=== PATIENT | male | born 1985 | race American Indian/Alaskan Native ===

== ENCOUNTER 2017-01-18 12:11 | Emergency (ER) | payer OTHER ==
--- NOTE | 2017-01-18 14:41 | Emergency Department Report ---
HPI - General Chief Complaint: Extremity Injury, Upper Time Seen by Provider: 01/18/17 14:25 - HPI HPI: She is a 31-year-old male presents to ED complaining of right axilla tenderness and draining for the past 3 days. Patient states he is at this incident a couple of times and has been to the ER for it. Patient states pain and swelling began 3 days ago. ED Past Medical Hx - Past Medical History Previous Medical History?: No - Surgical History Past Surgical History?: Yes Additional Surgical History: Left forehead plastic surgery - Social History Smoking Status: Current Every Day Smoker Substance Use Type: None - Medications Home Medications: Home Medications Medication Instructions Recorded Confirmed Last Taken Type Cephalexin [Keflex] 500 mg PO Q12HR #14 cap 08/18/16 Unknown Rx Acetaminophen/Codeine [Tylenol 1 tab PO Q6H PRN #14 tab 01/18/17 Unknown Rx /Codeine # 3 tab] Ibuprofen [Motrin 600 MG tab] 600 mg PO Q8H PRN #25 tablet 01/18/17 Unknown Rx Sulfamethoxazole/Trimethoprim 1 each PO BID #14 tablet 01/18/17 Unknown Rx [Bactrim DS TAB] ED Review of Systems ROS: Stated complaint: RT ARM PAIN Other details as noted in HPI Constitutional: denies: chills, fever Eyes: denies: eye pain, eye discharge, vision change ENT: denies: ear pain, throat pain, dental pain, hearing loss, congestion Respiratory: denies: cough, shortness of breath, wheezing Cardiovascular: denies: chest pain, palpitations Endocrine: no symptoms reported Gastrointestinal: denies: abdominal pain, nausea, diarrhea Genitourinary: denies: urgency, dysuria Musculoskeletal: denies: back pain, joint swelling, arthralgia Skin: denies: rash, lesions Neurological: denies: headache, weakness, paresthesias Psychiatric: denies: anxiety, depression Hematological/Lymphatic: denies: easy bleeding, easy bruising Physical Exam - Physical Exam Vital Signs: Vital Signs 01/18/17 13:02 Temperature 98.5 F Pulse Rate 77 Respiratory 18 Rate Blood Pressure 136/94 O2 Sat by Pulse 97 Oximetry Physical Exam: GENERAL: Alert and oriented x3, no apparent distress, Normal Gait, atraumatic. HEAD: Head is normocephalic and a-traumatic. EYES: Extra ocular muscles are intact. Pupils are equal, round, and reactive to light and accommodation. NECK: Supple. Non edematous, No carotid bruits. No lymphadenopathy or thyromegaly. No C-spine tenderness LUNGS: Symetrical with respiration, No wheezing, no rales or crackles, CTAB. HEART: S1, S2 present, regular rate and rhythm without murmur, no rubs, no gallops. EXTREMITIES/MUSCULOSKELETAL: No cyanosis, clubbing, rash, lesions or edema. Full ROM bilaterally. UE/LE Pulses 2+ bilaterally. Right axilla tender to palpation, rope like raised tender lesions, mildly draining, not fluctuant NEUROLOGIC: The patient is cooperative with no focal neurologic deficits. Cranial nerves II through XII are grossly intact. Normal speech.. SKIN: Warm and dry, No lesions, No ulceration or induration present. ED Course Vital Signs 01/18/17 13:02 Temperature 98.5 F Pulse Rate 77 Respiratory 18 Rate Blood Pressure 136/94 O2 Sat by Pulse 97 Oximetry ED Medical Decision Making - Medical Decision Making 31-year-old male presents with hydradenitis of the right axilla. ED course: Patient received [place] and a dose of Bactrim in ED. Discussed the patient is very important for him to follow up with the primary care or plastic surgeon if adenitis is recurrent. Discussed the patient that it is a recurrence of disease and needs to be followed up by and managed by a primary care or may need a surgeon. Signs are stable patient is in no acute distress Patient is alert and oriented 3 understands instructions given Critical care attestation.: If time is entered above; I have spent that time in minutes in the direct care of this critically ill patient, excluding procedure time. ED Disposition Clinical Impression: Hidradenitis suppurativa of right axilla Disposition: DISCHARGED TO HOME OR SELFCARE Is pt being admited?: No Does the pt Need Aspirin: No Condition: Stable Instructions: Adenitis (ED) Additional Instructions: Apply warm compresses to your armpit. To Medications prescribed Is very important that you follow up as referred. Prescriptions: Acetaminophen/Codeine [Tylenol /Codeine # 3 tab] 1 tab PO Q6H PRN #14 tab PRN Reason: Pain Ibuprofen [Motrin 600 MG tab] 600 mg PO Q8H PRN #25 tablet PRN Reason: Pain Sulfamethoxazole/Trimethoprim [Bactrim DS TAB] 1 each PO BID #14 tablet Referrals: PRIMARY CARE, [Primary Care Provider] - 3-5 Days [facility] [Outside] - 3-5 Days [facility] [Outside] - 3-5 Days [facility] [Outside] - 3-5 Days [facility] [Outside] - 3-5 Days MODE CHIRINOS MD [Staff Physician] - 3-5 Days Forms: Accompanied Note, Work/School Release Form(ED) Time of Disposition: 15:21
[2017-01-18] MEDS ORDERED: BACTRIM DS PO ONE (14:46)
[2017-01-18] MEDS ORDERED: NORCO 5/325 PO ONE (14:46)
[2017-01-18 15:10] VITALS: BP 128/75
== END 2017-01-18 15:32 | disposition home or self-care (01) ==
LOC: ED 12:11
DX: L73.2 Hidradenitis suppurativa (principal); F17.200 Nicotine dependence, unspecified, uncomplicated
CPT/HCPCS: 99282

== ENCOUNTER 2017-04-02 11:19 | Emergency (ER) | payer OTHER ==
[2017-04-02] MEDS ORDERED: SUBLIMAZE ONE (12:30)
[2017-04-02] MEDS ORDERED: SUBLIMAZE IV ONE (12:36)
--- NOTE | 2017-04-02 12:50 | Emergency Department Report ---
ED General Adult HPI - General Chief complaint: Extremity Injury, Upper Stated complaint: LEFT SHOULDER DISLOCATION Time Seen by Provider: 04/02/17 12:45 Source: patient Mode of arrival: Ambulatory Limitations: No Limitations - History of Present Illness Initial comments: Patient states that he fell down the stairs last night and injured his left shoulder only. He did notice significant swelling. However he thought that it was just sprained. He presented today for evaluation with persistent pain and difficulty in moving his shoulders. -: Sudden Location: left, upper extremity Radiation: non-radiation Quality: aching Consistency: constant Improves with: none Worsens with: none Associated Symptoms: denies other symptoms Treatments Prior to Arrival: none - Related Data Previous Rx's Medication Instructions Recorded Last Taken Type Cephalexin [Keflex] 500 mg PO Q12HR #14 cap 08/18/16 Unknown Rx Acetaminophen/Codeine [Tylenol 1 tab PO Q6H PRN #14 tab 01/18/17 Unknown Rx /Codeine # 3 tab] Ibuprofen [Motrin 600 MG tab] 600 mg PO Q8H PRN #25 tablet 01/18/17 Unknown Rx Sulfamethoxazole/Trimethoprim 1 each PO BID #14 tablet 01/18/17 Unknown Rx [Bactrim DS TAB] HYDROcodone/APAP 7.5-325 [Addison 1 each PO Q6HR PRN #20 tablet 04/02/17 Unknown Rx 7.5/325] Allergies Allergy/AdvReac Type Severity Reaction Status Date / Time No Known Allergies Allergy Unverified 08/18/16 13:01 ED Review of Systems ROS: Stated complaint: LEFT SHOULDER DISLOCATION Other details as noted in HPI Constitutional: denies: chills, fever Eyes: denies: eye pain, eye discharge, vision change ENT: denies: ear pain, throat pain Respiratory: denies: cough, shortness of breath, wheezing Cardiovascular: denies: chest pain, palpitations Endocrine: no symptoms reported Gastrointestinal: denies: abdominal pain, nausea, diarrhea Genitourinary: denies: urgency, dysuria Musculoskeletal: as per HPI. denies: back pain, joint swelling, arthralgia Skin: denies: rash, lesions Neurological: denies: headache, weakness, paresthesias Psychiatric: denies: anxiety, depression Hematological/Lymphatic: denies: easy bleeding, easy bruising ED Past Medical Hx - Past Medical History Previous Medical History?: No - Surgical History Additional Surgical History: Left forehead plastic surgery - Social History Smoking Status: Current Every Day Smoker Substance Use Type: Alcohol - Medications Home Medications: Home Medications Medication Instructions Recorded Confirmed Last Taken Type Cephalexin [Keflex] 500 mg PO Q12HR #14 cap 08/18/16 Unknown Rx Acetaminophen/Codeine [Tylenol 1 tab PO Q6H PRN #14 tab 01/18/17 Unknown Rx /Codeine # 3 tab] Ibuprofen [Motrin 600 MG tab] 600 mg PO Q8H PRN #25 tablet 01/18/17 Unknown Rx Sulfamethoxazole/Trimethoprim 1 each PO BID #14 tablet 01/18/17 Unknown Rx [Bactrim DS TAB] HYDROcodone/APAP 7.5-325 [Addison 1 each PO Q6HR PRN #20 tablet 04/02/17 Unknown Rx 7.5/325] ED Physical Exam - General Limitations: No Limitations General appearance: alert, in no apparent distress - Head Head exam: Present: atraumatic, normocephalic - Eye Eye exam: Present: normal appearance, PERRL, EOMI. Absent: scleral icterus - ENT ENT exam: Present: mucous membranes moist - Neck Neck exam: Present: normal inspection. Absent: tenderness, meningismus - Respiratory Respiratory exam: Present: normal lung sounds bilaterally. Absent: respiratory distress - Cardiovascular Cardiovascular Exam: Present: regular rate, normal rhythm. Absent: systolic murmur, diastolic murmur, rubs, gallop - GI/Abdominal GI/Abdominal exam: Present: soft, normal bowel sounds. Absent: distended, tenderness, guarding, rebound, rigid - Rectal Rectal exam: Present: deferred - Extremities Exam Extremities exam: Present: other (swelling and likely deformity of the left shoulder. The shoulder does appear to be within the glenoid fossa however.) - Back Exam Back exam: Present: normal inspection. Absent: CVA tenderness (L), muscle spasm , paraspinal tenderness, vertebral tenderness - Neurological Exam Neurological exam: Present: alert, oriented X3, CN II-XII intact. Absent: motor sensory deficit - Psychiatric Psychiatric exam: Present: normal affect, normal mood - Skin Skin exam: Present: warm, dry, intact, normal color. Absent: rash ED Course Vital Signs 04/02/17 11:46 Temperature 99 F Pulse Rate 105 H Blood Pressure 150/102 O2 Sat by Pulse 99 Oximetry - Reevaluation(s) Reevaluation #1: The patient was given IV analgesia with fentanyl. He'll be placed in a sling. His blood pressure will be reassessed. He will be prescribed medication as appropriate. He will be referred to orthopedics and primary care. 04/02/17 12:51 Reevaluation #2: Blood pressure improved. 04/02/17 12:57 ED Medical Decision Making - Radiology Data interpreted by me: Avulsion fracture of the head of the humerus without dislocation Critical care attestation.: If time is entered above; I have spent that time in minutes in the direct care of this critically ill patient, excluding procedure time. ED Disposition Clinical Impression: Fracture of proximal humerus Qualifiers: Encounter type: initial encounter Fracture type: open Fracture morphology: unspecified fracture morphology Laterality: left Qualified Code(s): S42.202B - Unspecified fracture of upper end of left humerus, initial encounter for open fracture Disposition: DC-01 TO HOME OR SELFCARE Is pt being admited?: No Does the pt Need Aspirin: No Condition: Stable Instructions: Arm Fracture in Adults (ED) Additional Instructions: Keep shoulder in sling. Rx for pain. See orthopedic doctor for follow-up. Prescriptions: HYDROcodone/APAP 7.5-325 [Addison 7.5/325] 1 each PO Q6HR PRN #20 tablet PRN Reason: Pain Referrals: KACI PRYOR MD [Staff Physician] - 3-5 Days Time of Disposition: 12:55
--- NOTE | 2017-04-02 12:51 | XRay Report ---
Left shoulder 3 views: History: Injury, left shoulder pain. Findings: The a.c. joint appears normal. There is a fracture noted of greater tuberosity of left humerus. Avulsion of the fracture fragment is noted in the region. The glenohumeral joint normal. Impression: Fracture greater tuberosity left humerus. If clinically indicated CT scan may be utilized.
[2017-04-02 13:00] VITALS: BP 132/91
[2017-04-02] MEDS ORDERED: PERCOCET 5/325 PO ONE (13:16)
== END 2017-04-02 13:33 | disposition home or self-care (01) ==
LOC: ED 11:19
DX: S42.252A Displaced fracture of greater tuberosity of left humerus, initial encounter for closed fracture (principal); F17.210 Nicotine dependence, cigarettes, uncomplicated; W10.9XXA Fall (on) (from) unspecified stairs and steps, initial encounter; Y93.89 Activity, other specified; Y92.89 Other specified places as the place of occurrence of the external cause; Y99.8 Other external cause status
CPT/HCPCS: 73030; 96374; 99284; J3010

== ENCOUNTER 2017-07-07 11:40 | Emergency (ER) | payer SELFPAY ==
[2017-07-07 11:49] VITALS: BP 143/83
[2017-07-07] MEDS ORDERED: BSS 1 DROPS, TETRACAINE 0.5% 1 DROPS, FUL-GLO 1 MG OU ONE (12:46)
--- NOTE | 2017-07-07 12:47 | Emergency Department Report ---
Eye Injury/Foreign Body - HPI Eye Location: Left Severity: Moderate Tetanus Status: Up to Date Eye Symptoms: Eye Pain: Yes, Blurred Vision: Yes, Eye Redness: Yes, Grinding/ Hammering Metal: No, Used Eye Protection: No, Contact Lens Use: No, Recalls Injury: No, Photophobia: Yes Other History: Patient is a 31-year-old male with no prior medical condition who presents with left eye redness and pain 2 weeks. Patient states he did not have any injury or trauma objects in the eye. Patient is have not anything in the eye. Patient states it is not recontacted use glasses. ED Review of Systems ROS: Stated complaint: LEFT EYE RED , HEADACHE Other details as noted in HPI Constitutional: denies: chills, fever Eyes: denies: eye pain, eye discharge, vision change ENT: denies: ear pain, throat pain Respiratory: denies: cough, shortness of breath, wheezing Cardiovascular: denies: chest pain, palpitations Endocrine: no symptoms reported Gastrointestinal: denies: abdominal pain, nausea, diarrhea Genitourinary: denies: urgency, dysuria Musculoskeletal: denies: back pain, joint swelling, arthralgia Skin: denies: rash, lesions Neurological: denies: headache, weakness, paresthesias Psychiatric: denies: anxiety, depression Hematological/Lymphatic: denies: easy bleeding, easy bruising ED Past Medical Hx - Past Medical History Previous Medical History?: No - Surgical History Additional Surgical History: Left forehead plastic surgery - Social History Smoking Status: Current Some Day Smoker Substance Use Type: Alcohol - Medications Home Medications: Home Medications Medication Instructions Recorded Confirmed Last Taken Type Ibuprofen [Motrin] 800 mg PO Q8HR PRN #30 tablet 07/07/17 Unknown Rx Naphazoline/Phenira 0.025/0.3% 1 - 2 drops OP TID #1 bottle 07/07/17 Unknown Rx [Visine-A] Ofloxacin 0.3% [Floxin Otic] 1 - 2 drops OT BID #1 bottle 07/07/17 Unknown Rx Eye Injury Exam - Exam General: Vital signs noted. No distress. Alert and acting appropriately. - Visual Acuity Right Vision Acuity Degree: 20/25 Eye Exam: Left Injection, Left Photophobia, Neither Abnormal Pupil, Neither EOMI , Neither Eye Foreign Body, Neither Lid Foreign Body, Neither Mucous Discharge, Neither Purulent Discharge, Neither Fluorescein Uptake, Neither Corneal Edema Left Vision Acuity Degree: 20/30 Eye Exam: Neither Injection, Neither Chemosis, Neither Abnormal Pupil, Neither EOMI, Neither Eye Foreign Body, Neither Lid Foreign Body, Neither Mucous Discharge, Neither Purulent Discharge, Neither Fluorescein Uptake, Neither Corneal Edema, Neither Photophobia Bilateral Vision Acuity Degree: 20/25 Exam: Jordan-Pen: Left eye pressure = 15 ED Course Vital Signs 07/07/17 11:47 Temperature 98.6 F Pulse Rate 95 H Respiratory 16 Rate Blood Pressure 143/83 O2 Sat by Pulse 97 Oximetry ED Medical Decision Making - Radiology Data Patient is a 31-year-old male presents to ED with left eye conjunctivitis ED course: Patient received an intramuscular Reglan in ED for headache. Haddad lamp performed shows no corneal abrasion. Discussed this findings with the patient. Visual acuity the normal as well as eye pressure. Discussed all of this patient. Discussed the patient with a eye drops for conjunctivitis treatment. I gave patient an antibiotic eyedrop for prophylaxis for bacterial infection. Discussed with patient most likely viral or allergic conjunctivitis due to his presentation. Vital signs are normal patient is in no acute distress patient's dizziness instructions given. Critical care attestation.: If time is entered above; I have spent that time in minutes in the direct care of this critically ill patient, excluding procedure time. ED Disposition Clinical Impression: Conjunctivitis due to adenovirus, left eye Disposition: DC-01 TO HOME OR SELFCARE Is pt being admited?: No Does the pt Need Aspirin: No Condition: Stable Instructions: Conjunctivitis (ED), Eye Foreign Body (ED) Additional Instructions: Use your eyedrops as prescribed. Is worsening symptoms his return to ED. Shabbir up to 48 hours for symptomatic relief from the drops. Follow-up with o and m supervisor as well as primary care physician. Prescriptions: Ibuprofen [Motrin] 800 mg PO Q8HR PRN #30 tablet PRN Reason: Pain Naphazoline/Phenira 0.025/0.3% [Visine-A] 1 - 2 drops OP TID #1 bottle Ofloxacin 0.3% [Floxin Otic] 1 - 2 drops OT BID #1 bottle Referrals: PRIMARY CAREMD [Primary Care Provider] - 3-5 Days JERROD BABB MD [Staff Physician] - 3-5 Days [facility] [Outside] - 3-5 Days [facility] [Outside] - 3-5 Days Forms: Accompanied Note, Work/School Release Form(ED) Time of Disposition: 13:46
[2017-07-07] MEDS ORDERED: BENADRYL PO ONE (13:44)
[2017-07-07] MEDS ORDERED: REGLAN PO ONE (13:44)
== END 2017-07-07 14:19 | disposition home or self-care (01) ==
LOC: ED 11:40
DX: B30.1 Conjunctivitis due to adenovirus (principal); F17.200 Nicotine dependence, unspecified, uncomplicated
CPT/HCPCS: 99283

== ENCOUNTER 2019-04-03 02:22 | Emergency (ER) | payer OTHER ==
[2019-04-03 02:33] VITALS: BP 153/80
--- NOTE | 2019-04-03 07:49 | Emergency Department Report ---
Abscess Boil HPI - HPI Chief Complaint: Skin/Abscess/Foreign Body Stated Complaint: BLISTER LT UNDERARM Time Seen by Provider: 04/03/19 07:24 Duration: 3 Days Location: Upper Extremity (left axilla) Severity: Moderate History: Yes Pain, Yes Purulent Drainage, Yes Previous History, No Fever, No Numbness, No Foreign Body, No Insect Bite HPI: This is a 33-year-old -[place]i male presents to the emergency room with abscess to the left axilla for 2-3 days. Patient reports redness, tenderness, and purulent drainage yesterday. He reports past history of abscess to the same area and no others significant history. He currently reports the pain is 8 out of 10 on pain scale. Patient states that abscess is smaller than 2 days ago. Home Medications: Previous Rx's Medication Instructions Recorded Last Taken Type Naphazoline/Phenira 0.025/0.3% 1 - 2 drops OP TID #1 bottle 07/07/17 Unknown Rx [Visine-A] Ofloxacin 0.3% [Floxin 0.3% Otic] 1 - 2 drops OT BID #1 bottle 07/07/17 Unknown Rx Ibuprofen [Motrin 800 MG tab] 800 mg PO Q8HR PRN #30 tablet 04/03/19 Unknown Rx Sulfamethoxazole/Trimethoprim 1 each PO BID #20 tablet 04/03/19 Unknown Rx [Bactrim DS TAB] Allergies/Adverse Reactions: Allergies Allergy/AdvReac Type Severity Reaction Status Date / Time No Known Allergies Allergy Verified 04/02/17 12:53 ED Review of Systems ROS: Stated complaint: BLISTER LT UNDERARM Other details as noted in HPI Constitutional: denies: chills, fever Respiratory: denies: cough, shortness of breath, wheezing Cardiovascular: denies: chest pain, palpitations Gastrointestinal: denies: abdominal pain, nausea, diarrhea Skin: lesions (abscess to left axilla). denies: rash Neurological: denies: headache, weakness, paresthesias Psychiatric: denies: anxiety, depression ED Past Medical Hx - Past Medical History Previous Medical History?: No Additional medical history: abscesses - Surgical History Additional Surgical History: Left forehead plastic surgery - Social History Smoking Status: Current Every Day Smoker - Medications Home Medications: Home Medications Medication Instructions Recorded Confirmed Last Taken Type Naphazoline/Phenira 0.025/0.3% 1 - 2 drops OP TID #1 bottle 07/07/17 Unknown Rx [Visine-A] Ofloxacin 0.3% [Floxin 0.3% Otic] 1 - 2 drops OT BID #1 bottle 07/07/17 Unknown Rx Ibuprofen [Motrin 800 MG tab] 800 mg PO Q8HR PRN #30 tablet 04/03/19 Unknown Rx Sulfamethoxazole/Trimethoprim 1 each PO BID #20 tablet 04/03/19 Unknown Rx [Bactrim DS TAB] ED Abscess Boil Physical Exam - Exam General: Vital signs noted. No distress. Alert and acting appropriately. Front/Back of Body, Lg (Color): 1 - 1 cm and non-fluctuant nodule to the left axilla, erythematous, and purulent drainage Size: 1 cm Exam: Yes Tenderness, Yes Surrounding Cellulites/Erythema, Yes Normal Neurologic Exam, Yes Normal Circulation, No Fluctuance, No Lymphangitis, No Crepitation, No Heart Murmur ED Course Vital Signs 04/03/19 02:31 Temperature 98.0 F Pulse Rate 79 Respiratory 18 Rate Blood Pressure 153/80 O2 Sat by Pulse 96 Oximetry Critical care attestation.: If time is entered above; I have spent that time in minutes in the direct care of this critically ill patient, excluding procedure time. ED Medical Decision Making - Medical Decision Making This is a 33 y.o. male that presents with a painful abscess to left axilla for 3 days. Prior history of abscess. Patient is stable and examined by me. No acute signs of distress noted. The abscess is currently draining and an nonfluctuant, I & D not indicated at this time. Discussed plan to start bactrim DS and ibuprofen with patient. Educated patient on follow up plan to have wound reassessed in 2-3 days. Patient agrees to ED plan of care. Discharged home and follow up with PCP in 2-3 days. ED Disposition Clinical Impression: Abscess of axilla, left Disposition: - TO HOME OR SELFCARE Is pt being admited?: No Does the pt Need Aspirin: No Condition: Stable Instructions: Abscess (ED) Additional Instructions: Have wound reassessed by a primary care doctor in 2-3 days. Complete full round of Bactrim DS antibiotic as prescribed. Follow up with primary care doctor or ER in 2-3 days. Return to ER if foul smelling discharge, swelling, or severe pain to wound. Prescriptions: Sulfamethoxazole/Trimethoprim [Bactrim DS TAB] 1 each PO BID #20 tablet Ibuprofen [Motrin 800 MG tab] 800 mg PO Q8HR PRN #30 tablet PRN Reason: Pain Referrals: MYRTLE GARVIN MD [Primary Care Provider] - 3-5 Days [facility] [Outside] - 3-5 Days [facility] [Outside] - 3-5 Days [facility] [Outside] - 3-5 Days Forms: Work/School Release Form(ED) Time of Disposition: 08:00
== END 2019-04-03 08:29 | disposition home or self-care (01) ==
LOC: ED 02:22
DX: L02.412 Cutaneous abscess of left axilla (principal); F17.200 Nicotine dependence, unspecified, uncomplicated; Z79.899 Other long term (current) drug therapy; Z98.890 Other specified postprocedural states